=== PATIENT | female | born 1970 | race Caucasian/White ===

== ENCOUNTER 2016-09-16 20:55 | Emergency (ER) | payer MEDICAID ==
[~2016-09-16] VITALS: Ht 152.4 cm; Wt 84.0 kg
[~2016-09-16 20:55] MED LIST: CIPR500T4 PO; HYDR-3498 PO; IBUP-1542 PO; TAMS-14 PO; TRAM50TA2 PO
[2016-09-16 21:10] VITALS: Ht 152.4 cm; Wt 84.0 kg
--- NOTE | 2016-09-17 02:52 | RADRPT ---
PROCEDURE: Pelvic ultrasound. CLINICAL INDICATION: Pelvic pain. TECHNIQUE: Multiple sonographic images of the pelvis were obtained utilizing a transabdominal and endovaginal technique. The images were reviewed on a PACS workstation. COMPARISON: None. FINDINGS: The uterus is visualized and measures 6.8 x 3.9 x 6.0 cm. No abnormal uterine mass is identified. Th ere are multiple Nabothian cyst within the cervix. The endometrial echo complex is mildly heterogen eous and measures 16.4 mm. There is no evidence for free fluid. The right ovary has a normal echotexture and measures 3.5 x 1. 6 x 2.2 cm. The left ovary has a normal echotexture and measures 4.0 x 2.5 x 2.6 cm. There is norm al flow to both ovaries. There is a left ovarian cyst with internal echogenic debris and septation measuring 2.5 x 1.8 x 2.0 cm. No adnexal masses are identified. IMPRESSION: Left ovarian 2.5 cm complex cyst. Mildly thickened and heterogeneous endometrium. .Kaden Kolb MD, MD Date Time Electronically viewed and signed by .Kaden Kolb MD, MD on 09/17/2016 02:52 .T/
[2016-09-17] MEDS ORDERED: NAPR-260 PO (03:29)
--- NOTE | 2016-09-17 03:31 | ERD ---
ER Documentation Chief Complaint Date/Time DATE: 09/17/16 TIME: 03:31 Chief Complaint pelvic pain x 1 week ROS All systems reviewed and are negative except as per history of present illness. Medications Home Meds Active Scripts Naproxen* (Naprosyn*) 500 Mg Tablet, 500 MG PO BID for 20 Days, #30 TAB Prov:Aline Gamino PA-C 09/17/16 Ciprofloxacin Hcl* (Ciprofloxacin Hcl*) 500 Mg Tablet, 500 MG PO BID for 10 Days , TAB Prov:JA FOSTER MD 01/12/16 Tramadol HCl (Tramadol HCl) 50 Mg Tablet, 50 MG PO Q4 Y for PAIN, #20 TAB Prov:JA FOSTER MD 01/12/16 Hydrocodone Bit-Acetaminophen* ([place]*) 5-325 Mg Tab, 1 TAB PO Q6 Y for PAIN, # 20 TAB Prov:DESIREE SEGOVIA PA-C 11/11/15 Ibuprofen* (Motrin*) 600 Mg Tab, 600 MG PO Q6H Y for PAIN AND OR ELEVATED TEMP, #30 TAB Prov:DESIREE SEGOVIA PA-C 11/11/15 Tamsulosin Hcl* (Flomax*) 0.4 Mg Cap.er.24h, 0.4 MG PO QPM for 5 Days, CAP Prov:DESIREE SEGOVIA PA-C 11/11/15 Allergies Allergies: Coded Allergies: No Known Allergy (Unverified , 11/11/15) PMhx/Soc History of Surgery: Yes (LEFT EAR SURGERY. ) Anesthesia Reaction: No Hx Neurological Disorder: No Hx Respiratory Disorders: No Hx Cardiac Disorders: No Hx Psychiatric Problems: No Hx Miscellaneous Medical Probl: No Hx Alcohol Use: No Hx Substance Use: No Hx Tobacco Use: No Physical Exam Vitals Vital Signs Date Time Temp Pulse Resp B/P Pulse Ox O2 Delivery O2 Flow Rate FiO2 09/16/16 21:10 98.9 98 20 138/74 100 Physical Exam Const: [] Head: Atraumatic Eyes: Normal Conjunctiva ENT: Normal External Ears, Nose and Mouth. Neck: Full range of motion..~ No meningismus. Resp: Clear to auscultation bilaterally Cardio: Regular rate and rhythm, no murmurs Abd: Soft, non tender, non distended. Normal bowel sounds Skin: No petechiae or rashes Back: No midline or flank tenderness Ext: No cyanosis, or edema Neur: Awake and alert Psych: Normal Mood and Affect Departure Diagnosis: Primary Impression: Acute pain in female pelvis Condition: Stable Patient Instructions: What Are Ovarian Cysts?, Pelvic Pain, Unknown Cause Referrals: NO PRIMARY,CARE PHYSICIAN (PCP) Additional Instructions: Call your primary care doctor TOMORROW for an appointment during the next 1-2 days.See the doctor sooner or return here if your condition worsens before your appointment time. Aline Gamino PA-C Sep 17, 2016 03:31
[2016-09-17 03:34] VITALS: BP 132/83; PULSE 83; RESP 18; TEMP 98.7
== END 2016-09-17 03:40 | disposition home or self-care (01) ==
LOC: FTE 20:55
DX: R10.2 Pelvic and perineal pain (principal)
CPT/HCPCS: 36415; 76830; 76856; 87210; Z7502

== ENCOUNTER 2017-01-12 07:27 | Emergency (ER) | payer MEDICAID ==
[~2017-01-12] VITALS: Ht 152.4 cm; Wt 83.0 kg
[~2017-01-12 07:27] MED LIST changes: +NAPR-260 PO
[2017-01-12 07:29] VITALS: Ht 152.4 cm; Wt 83.0 kg
[2017-01-12] MEDS ORDERED: morphine 4 MG/ML VIAL IV STA (08:18)
[2017-01-12] MEDS ORDERED: ONDANSETRON 4 MG INJ IV STA (08:18)
--- NOTE | 2017-01-12 08:46 | ERD ---
ER Documentation Chief Complaint Date/Time DATE: 01/12/17 TIME: 08:42 Chief Complaint LUQ PAIN,NAUSEA X 3 WEEKS HPI Patient is a 46-year-old female with a past medical history of nephrolithiasis who presents to the ED with abdominal pain for the last 3 months which has gotten worse in the last 2 days. She says that the pain comes and goes however in the last 2 days the pain has gotten constant. She also complains of bilateral back pain. She states that her pain is mostly located on the left side of her abdomen. States that she has nausea with no vomiting or diarrhea. Last bowel movement was last night. She has a decrease in appetite but is tolerating food and fluids. Denies dysuria or urgency. Denies chest pain or cough or shortness of breath. Denies fever chills. Denies headache or dizziness, neck pain or neck stiffness. She has not taken any medication for her symptoms. ROS All systems reviewed and are negative except as per history of present illness. Medications Home Meds Active Scripts Acetaminophen* (Tylophen*) 500 Mg Capsule, 1 CAP PO Q6H Y for PAIN AND OR ELEVATED TEMP, #20 CAP Prov:THERESA RIVERA PA-C 01/12/17 Ondansetron (Ondansetron Odt) 4 Mg Tab.rapdis, 4 MG PO Q6H Y for NAUSEA AND/OR VOMITING, #10 TAB Prov:THERESA RIVERA PA-C 01/12/17 Nitrofurantoin Monohyd Macrocr* (Macrobid*) 100 Mg Capsr, 100 MG PO BID for 7 Days, CAP Prov:THERESA RIVERA PA-C 01/12/17 Naproxen* (Naprosyn*) 500 Mg Tablet, 500 MG PO BID for 20 Days, #30 TAB Prov:Aline Gamino PA-C 09/17/16 Ciprofloxacin Hcl* (Ciprofloxacin Hcl*) 500 Mg Tablet, 500 MG PO BID for 10 Days , TAB Prov:JA FOSTER MD 01/12/16 Tramadol HCl (Tramadol HCl) 50 Mg Tablet, 50 MG PO Q4 Y for PAIN, #20 TAB Prov:JA FOSTER MD 01/12/16 Hydrocodone Bit-Acetaminophen* ([place]*) 5-325 Mg Tab, 1 TAB PO Q6 Y for PAIN, # 20 TAB Prov:AIME SEGOVIAJONNY Segal PA-C 11/11/15 Ibuprofen* (Motrin*) 600 Mg Tab, 600 MG PO Q6H Y for PAIN AND OR ELEVATED TEMP, #30 TAB Prov:CHANDUPANKAJMasterDESIREE Segal PA-C 11/11/15 Tamsulosin Hcl* (Flomax*) 0.4 Mg Cap.er.24h, 0.4 MG PO QPM for 5 Days, CAP Prov:AIME SEGOVIAJONNY Segal PA-C 11/11/15 Allergies Allergies: Coded Allergies: No Known Allergy (Unverified , 11/11/15) PMhx/Soc History of Surgery: Yes (, ear surgery) Anesthesia Reaction: No Hx Neurological Disorder: No Hx Respiratory Disorders: No Hx Cardiac Disorders: No Hx Psychiatric Problems: No Hx Miscellaneous Medical Probl: No Hx Alcohol Use: No Hx Substance Use: No Hx Tobacco Use: No Smoking Status: Never smoker FmHx Family History: No coronary disease, No diabetes, No other Physical Exam Vitals Vital Signs Date Time Temp Pulse Resp B/P Pulse Ox O2 Delivery O2 Flow Rate FiO2 01/12/17 10:33 65 18 125/76 97 Room Air 01/12/17 07:29 98.8 88 18 130/60 97 Physical Exam GENERAL: Well-developed, well-nourished female. Appears in no acute distress. HEAD: Normocephalic, atraumatic. EYES: Pupils are equally reactive bilaterally. EOMs grossly intact. No conjunctival erythema. ENT: Moist mucous membranes. No uvula deviation. No kissing tonsils. No exudates. NECK: Supple. No lymphadenopathy or thyromegaly. No meningismus. negative kernig. negative brudinski. LUNG: Clear to auscultation bilaterally. No rhonchi, wheezing, rales or coarse breath sounds. HEART: Regular rate and rhythm. No murmurs, rubs or gallops. ABDOMEN: No scars, ecchymosis or rashes noted. Soft, and nondistended. Positive bowel sounds in all four quadrants. No rebound tenderness, no guarding. (-) McBurneys point tenderness. No CVA tenderness. tenderness in llq and left upper quadrant. BACK: No midline tenderness. Extremities: Equal pulses bilaterally. No peripheral clubbing, cyanosis or edema. No unilateral leg swelling. NEUROLOGIC: Alert and oriented. Moving all four extremities. 5/5 strength in all extremities. Normal speech. Steady gait. SKIN: Normal color. Warm and dry. No rashes or lesions. Capillary refill < 2 seconds Result Diagram: 01/12/17 0834 01/12/17 0834 Results 24 hrs Laboratory Tests Test 01/12/17 08:34 White Blood Count 7.310^3/ul Red Blood Count 4.4410^6/ul Hemoglobin 13.2g/dl Hematocrit 38.7% Mean Corpuscular Volume 87.2fl Mean Corpuscular Hemoglobin 29.7pg Mean Corpuscular Hemoglobin Concent 34.1g/dl Red Cell Distribution Width 13.2% Platelet Count 11422^3/UL Mean Platelet Volume 11.1fl Neutrophils % 53.7% Lymphocytes % 39.6% Monocytes % 4.1% Eosinophils % 1.8% Basophils % 0.5% Nucleated Red Blood Cells % 0.0/100WBC Neutrophils # 3.910^3/ul Lymphocytes # 2.910^3/ul Monocytes # 0.310^3/ul Eosinophils # 0.110^3/ul Basophils # 0.010^3/ul Nucleated Red Blood Cells # 0.010^3/ul Urine Color LT. YELLOW Urine Clarity CLEAR Urine pH 6.0 Urine Specific [place] <=1.005 Urine Ketones NEGATIVE Urine Nitrite NEGATIVE Urine Bilirubin NEGATIVE Urine Urobilinogen 0.2 E.U./dL Urine Leukocyte Esterase 1+ Urine Microscopic RBC NONE SEEN/HPF Urine Microscopic WBC 5-10/HPF Urine Epithelial Cells FEW Urine Bacteria FEW Urine Hemoglobin NEGATIVE Urine Glucose NEGATIVE% Urine Total Protein NEGATIVE Sodium Level 143mmol/L Potassium Level 3.3mmol/L Chloride Level 105mmol/L Carbon Dioxide Level 26mmol/L Anion Gap 15 Blood Urea Nitrogen 5mg/dl Creatinine 0.52mg/dl Glucose Level 174mg/dl Calcium Level 9.2mg/dl Total Bilirubin 0.3mg/dl Direct Bilirubin 0.00mg/dl Indirect Bilirubin 0.3mg/dl Aspartate Amino Transf (AST/SGOT) 81IU/L Alanine Aminotransferase (ALT/SGPT) 79IU/L Alkaline Phosphatase 101IU/L Total Protein 7.9g/dl Albumin 4.5g/dl Globulin 3.40g/dl Albumin/Globulin Ratio 1.32 Lipase 116U/L Current Medications Medications (Trade) Dose Ordered Sig/Liam Route PRN Reason Start Time Stop Time Status Last Admin Dose Admin Morphine Sulfate (morphine) 4 mg ONCE STAT IV 01/12/17 08:18 01/12/17 08:20 DC 01/12/17 08:36 Ondansetron HCl (Zofran Inj) 4 mg ONCE STAT IV 01/12/17 08:18 01/12/17 08:20 DC 01/12/17 08:33 Procedures/MDM ER COURSE: I kept the patient and/or family informed of laboratory and diagnostic imaging results throughout the emergency room course. EKG, MONITORS, & DIAGNOSTIC IMAGING: [place] [id number] Radiology Main Line: [phone] DIAGNOSTIC IMAGING REPORT Patient: CONNIE HYDE : 1970 Age: 46 Sex: F MR #: [id number] DOS: 01/12/17 0818 Ordering MD: THERESA RIVERA PA-C Location: [facility] Room/Bed: PROCEDURE: CT Abdomen and Pelvis without contrast. CLINICAL INDICATION: Abdominal pain. TECHNIQUE: CT scan of the abdomen and pelvis without contrast was performed on a multidetector high-resolution CT scanner. The patient was scanned without intravenous contrast. Coronal and sagittal reformatted images were obtained from the axial source images. Images were reviewed on a high-resolution PACS workstation. The total exam CTDI equals 20.71 mGy and the total exam DLP equals 1149.22 mGy-cm. One or the following dose reduction techniques were used: -Automated exposure control. -Adjustment of the mA and/or KV according to patient's size. -Use of iterative reconstruction technique. COMPARISON: CT abdomen pelvis from 01/12/2016. FINDINGS: Lung Bases: Unremarkable. GI:. Unremarkable. Liver: There is a decrease in the overall attenuation of the liver suggesting mild steatosis. Gallbladder: Unremarkable. Pancreas: Unremarkable. Spleen: Unremarkablel Adrenals: Unremarkable. Kidneys: There is a 1 mm nonobstructing calculus in the mid pole of the left kidney. There is no evidence of obstructive uropathy. Bladder: Unremarkable. Pelvic Organs: There are small hypodensities in the ovaries, likely follicular cysts. Skeleton: Normal for age. Other: N/A IMPRESSION: 1. 1 mm nonobstructing left renal calculus without evidence of ureteral lithiasis or obstructive uropathy. 2. Minimal scattered colonic diverticulosis without evidence of acute diverticulitis. 3. Normal appearing appendix visualized. 4. Slight decrease in the overall attenuation liver suggesting mild diffuse steatosis. 5. No other significant intra-abdominal or pelvic process identified. RPTAT: [facility] Physician Antony Date Time Electronically viewed and signed by Physician Antony on 01/12/2017 10: 16 JH/ CC: THERESA RIVERA PA-C MEDICATIONS: IV fluids, morphine, Zofran. Tolerated well with no adverse reaction. LAB INTERPRETATION: CBC showed no evidence of systemic infection or severe anemia. CMP showed no evidence of electrolyte abnormalities, severe acidosis, alkalosis, renal failure , or liver disease. Lipase showed no evidence of acute pancreatitis. UA showed no evidence of leukocytes, nitrites or hematuria. Urine test was negative. MEDICAL DECISION MAKING: This is a 46-year-old female who presents with abdominal pain 2 months. Vital signs were reviewed. Patient is afebrile. Patient is not hypoxic. Patient is not toxic or ill-appearing. CAT scan is read by radiologist shows diverticulosis and nephrolithiasis. Her urine is positive for UTI with 1+ leukocytes and no nitrites or hematuria. I have low suspicion for septic or obstructive stone. I have low suspicion for pyelonephritis. I reexamined patient after administration of medication and she stated mild improvement in her symptoms Low suspicion for ACS, AAA, perforated ulcer, bowel obstruction, cholecystitis, choledocholithiasis, cholangitis, pancreatitis, hepatic abscess, appendicitis, diverticulitis, gastroenteritis, hepatitis, peptic ulcer disease, HELLP syndrome. DISCHARGE: At this time, patient is stable for discharge and outpatient management with no new complaints during the ER course. Patient was sent home with Naprosyn, Macrobid and Zofran and a copy of all imaging and laboratory studies.. Patient will be discharged home with instructions to recheck for new or worsening symptoms such as fever, nausea, weakness, LOC and to follow up with primary care in the next 1-2 days. Patient was advised to return to the ER for any new or worsening symptoms. Plan was discussed and patient and/or family understands and agrees. Home instructions were given. Departure Diagnosis: Primary Impression: Nephrolithiasis Additional Impression: UTI (urinary tract infection) Urinary tract infection type: acute cystitis Hematuria presence: without hematuria Qualified Code: N30.00 - Acute cystitis without hematuria Condition: Stable THERESA RIVERA PA-C Jan 12, 2017 08:44
[2017-01-12 08:52] LABS: ADD SCAN DIFF NO
[2017-01-12 08:54] LABS: BASOPHILS % 0.5 % (0.0-2.0); EOSINOPHILS # 0.1 10^3/ul (0.0-0.5); EOSINOPHILS % 1.8 % (0.0-7.0); HEMATOCRIT 38.7 % (37.0-47.0); HEMOGLOBIN 13.2 g/dl (12.0-16.0); LYMPHOCYTES # 2.9 10^3/ul (0.8-2.9); LYMPHOCYTES % 39.6 % (15.0-51.0); MEAN CORPUSCULAR HEMOGLOBIN 29.7 pg (29.0-33.0); MEAN CORPUSCULAR HGB CONC 34.1 g/dl (32.0-37.0); MEAN CORPUSCULAR VOLUME 87.2 fl (82.0-101.0); MEAN PLATELET VOLUME 11.1 fl (7.4-10.4); MONOCYTE # 0.3 10^3/ul (0.3-0.9); MONOCYTES % 4.1 % (0.0-11.0); NEUTROPHIL # 3.9 10^3/ul (1.6-7.5); NEUTROPHILS % 53.7 % (39.0-77.0); PLATELET COUNT 201 10^3/UL (140-415); RED BLOOD COUNT 4.44 10^6/ul (4.20-5.40); RED CELL DISTRIBUTION WIDTH 13.2 % (11.5-14.5); WHITE BLOOD COUNT 7.3 10^3/ul (4.8-10.8)
[2017-01-12 08:57] LABS: ADD UMIC YES; URINE BILIRUBIN (Dip) NEGATIVE (NEGATIVE); URINE BLOOD (Dip) NEGATIVE (NEGATIVE); URINE COLOR LT. YELLOW (YELLOW); URINE GLUCOSE (Dip) NEGATIVE (NEGATIVE); URINE KETONES (Dip) NEGATIVE (NEGATIVE); URINE LEUKOCYTE ESTERASE (Dip) 1+ (NEGATIVE); URINE NITRITE (Dip) NEGATIVE (NEGATIVE); URINE TOTAL PROTEIN (Dip) NEGATIVE (NEGATIVE); URINE UROBILINOGEN (Dip) 0.2 E.U./dL (0.1-1.0)
[2017-01-12 09:13] LABS: ALBUMIN 4.5 g/dl (3.3-4.9); ALBUMIN/GLOBULIN RATIO 1.32; BILIRUBIN,INDIRECT 0.3 mg/dl (0-1.1); BILIRUBIN,TOTAL 0.3 mg/dl (0.2-1.3); CALCIUM 9.2 mg/dl (8.4-10.2); CREATININE 0.52 mg/dl (0.44-1.00); POTASSIUM 3.3 mmol/L (3.5-5.1); TOTAL PROTEIN 7.9 g/dl (6.1-8.1)
[2017-01-12 09:55] LABS: BACTERIA,URINE FEW; URINE RBCS NONE SEEN /HPF (0)
--- NOTE | 2017-01-12 10:17 | RADRPT ---
PROCEDURE: CT Abdomen and Pelvis without contrast. CLINICAL INDICATION: Abdominal pain. TECHNIQUE: CT scan of the abdomen and pelvis without contrast was performed on a multidetector hig h-resolution CT scanner. The patient was scanned without intravenous contrast. Coronal and sagittal reformatted images were obtained from the axial source images. Images were reviewed on a high-resol [employer] PACS workstation. The total exam CTDI equals 20.71 mGy and the total exam DLP equals 1149.22 m Gy-cm. One or the following dose reduction techniques were used: -Automated exposure control. -Adjustment of the mA and/or KV according to patient's size. -Use of iterative reconstruction technique. COMPARISON: CT abdomen pelvis from 01/12/2016. FINDINGS: Lung Bases: Unremarkable. GI:. Unremarkable. Liver: There is a decrease in the overall attenuation of the liver suggesting mild steatosis. Gallbladder: Unremarkable. Pancreas: Unremarkable. Spleen: Unremarkablel Adrenals: Unremarkable. Kidneys: There is a 1 mm nonobstructing calculus in the mid pole of the left kidney. There is no ev idence of obstructive uropathy. Bladder: Unremarkable. Pelvic Organs: There are small hypodensities in the ovaries, likely follicular cysts. Skeleton: Normal for age. Other: N/A IMPRESSION: 1. 1 mm nonobstructing left renal calculus without evidence of ureteral lithiasis or obstructive uro srikanth. 2. Minimal scattered colonic diverticulosis without evidence of acute diverticulitis. 3. Normal appearing appendix visualized. 4. Slight decrease in the overall attenuation liver suggesting mild diffuse steatosis. 5. No other significant intra-abdominal or pelvic process identified. RPTAT: [facility] Physician Antony Date Time Electronically viewed and signed by Physician Antony on 01/12/2017 10:16 /
[2017-01-12] MEDS ORDERED: NITR-58 PO (10:21)
[2017-01-12] MEDS ORDERED: ONDA4TAB14 PO (10:21)
[2017-01-12] MEDS ORDERED: ACET500C5 PO (10:22)
[2017-01-12 10:33] VITALS: BP 125/76; PULSE 65; RESP 18
== END 2017-01-12 10:36 | disposition home or self-care (01) ==
LOC: FTE 07:27
DX: N20.0 Calculus of kidney (principal); N30.00 Acute cystitis without hematuria; R10.2 Pelvic and perineal pain; R11.0 Nausea
CPT/HCPCS: 74176; 80053; 81001; 83690; 85025; J2270; J2405; 36415; 96374; 96375